=== PATIENT | female | born 1970 | race Caucasian/White ===

== ENCOUNTER → 2017-02-15 | Outpatient (CLI) | payer BC ==
[~2017-02-15] MED LIST: CALC600T86 PO; CHOL10003 PO; MULT-934 PO; OMEG500C7 PO; UBID1CAP47 PO
== END ==
LOC: NEU 13:19
PROVIDERS: ATTEND Psychiatry & Neurology Neurology
DX: G50.8 Other disorders of trigeminal nerve (principal); G56.03 Carpal tunnel syndrome, bilateral upper limbs
CPT/HCPCS: 95911